=== PATIENT | female | born 1960 | race Caucasian/White ===

== ENCOUNTER → 2016-07-19 | Outpatient (CLI) | payer MEDICAID ==
[~2016-07-19] MED LIST: ALBU8.5H4 IH; ALPR.5T PO; ATN50T PO; CHOL5000 PO; DULO30CA3 PO; ESCI10TA49 PO; EZET10TA5 PO; FEXO180T PO; FLUO40CA12 PO; GEMF600T3 PO; GLYB5TAB6 PO; LORA10TA7 PO; LORA5SOL51 PO; LOVA40TA2 PO; METF850T2 PO; METH-315 PO; MONT10TA21 PO; OLOP2.5D OP; OLOP2.5D OU; ONDA4TAB41 PO; ONDA4TAB8 PO; ONDAN4ODT PO; OXYC-109 PO; OXYC1TAB8 PO; OXYC1TAB87 PO; PROP1DRO OP; RIZA10TA25 PO; TIZA6CAP7 PO; TRM50T PO; VITA-189 PO; [UNRECOGNIZED DRUG - OTHER] PO
--- NOTE | 2016-07-19 10:54 | Diagnostic Imaging Report ---
CLINICAL INDICATION: Patient with congenital cerebral cyst. Patient has history of cyst at third ventricle with headache. EXAM: MRI of the brain performed without and with 15 cc of ProHance IV contrast. Sequences include axial DWI, ADC map, axial proton density coronal gradient echo, axial T2, axial FLAIR, axial T1, axial T1 post IV contrast, and coronal T1 post IV contrast. COMPARISON: MRI of the brain performed without and with IV contrast dated 07/16/2013. FINDINGS: There is no evidence of colloid cyst seen on this exam. There is flow artifact seen within the third ventricle and near the foramen of [place] on the axial FLAIR sequence. There is no evidence of acute cerebral infarct, intracranial hemorrhage, or gross mass effect. Stable few focal areas of high T2 signal white matter both cerebral hemispheres and frontal lobes likely related to chronic small vessel ischemic disease. There is normal hirsch-white matter distinction. The brain parenchymal volume appears appropriate for patient's age. There is no significant midline shift or herniation. The visualized [place] vascular structures have normal flow void appearance. There is no evidence of hydrocephalus. The basal cisterns are unremarkable. The skull, extracranial soft tissue, and orbits are unremarkable. There is mild mucosal thickening involving both maxillary sinuses and ethmoid sinus. There is a small amount of fluid left mastoid air cells. IMPRESSION: 1: There is no evidence of colloid cyst seen on this exam. There is a small amount of flow artifact in the third ventricle. If there is continued concern for colloid cyst, then cut high resolution axial 3-D T2 sequence, with coronal and sagittal reformatted images, through the third ventricle may help better evaluate. 2: Stable mild chronic small vessel ischemic disease. 3: Mild paranasal sinus disease. Dictated by: Dictated on workstation # [id number]
== END ==
LOC: RAD 08:27
PROVIDERS: ATTEND Psychiatry & Neurology Neurology
DX: Q04.6 Congenital cerebral cysts (principal)
CPT/HCPCS: 36415; 70553; 82565; A9579

== ENCOUNTER 2016-08-06 06:59 | Day surgery (SDC) | payer MEDICAID ==
[2016-08-06] VITALS (10 sets, daily range): BP systolic 101–150; BP diastolic 59–88
[~2016-08-06] VITALS: Ht 162.6 cm; Wt 72.0 kg
--- NOTE | 2016-08-06 06:29 | NUR ---
patient called and stated that prep did not work the only results was a little water and some mucus was expelled. pt stated that she did call last night and talked to iphone developer and was told to call this am. Dr. Valdes notified and gave orders to give a tap water enema on arrival. Addendum: 08/06/16 at 0634 by Aisha Beltran RN pt also stated that she is having sharp right side abdominal pains.
[~2016-08-06 06:59] MED LIST changes: +LACTATED RINGERS 1,000 ML IV SCH; +SODIUM CHLORIDE FLUSH 3 ML SYR IV PRN
[2016-08-06] MEDS ORDERED: LOVA40TA2 PO (07:30)
[2016-08-06] MEDS ORDERED: PROPOFOL 20 ML IV ONE (08:32)
[2016-08-06] MEDS ORDERED: MIDAZOLAM 2 MG/2 ML (VERSED) VIAL ONE (08:32)
--- NOTE | 2016-08-07 11:09 | OPERATIVE REPORT ---
DATE OF OPERATION: 08/06/2016 PRE-OPERATIVE DIAGNOSIS: Colon screening with personal history of colon polys. POST-OPERATIVE DIAGNOSIS: Colon polyp. OPERATIVE PROCEDURE: Total colonoscopy and snare polypectomy. SURGEON: Rohan Valdes MD ANESTHESIA: IV conscious sedation, Monitored Anesthesia Services POSITION: Left lateral decubitus ESTIMATED BLOOD LOSS: Minimal FINDINGS: 1. A small sessile polyp at the hepatic flexure. 2. Poor colon prep. 3. The remainder of colon mucosa normal. OPERATIVE NOTE: Following satisfactory induction of analgesia a digital rectal exam was performed. This revealed normal sphincter tone and no rectal mass. The colonoscope was introduced per rectum and advanced under CO2 insufflation and direct vision to the cecum. The cecum was identified by convergence of the teniae, ileocecal valve, and palpation/translumination of the right lower quadrant. The above findings were noted. Hand[employer] photographs were obtained. The polyp was removed with a snare. Upon closing the snare the polyp was transected obviating the need for cautery. Careful inspection for several minutes revealed good hemostasis. The polyp was removed and submitted to pathology. The above areas of the colon were carefully inspected including extensive suction and irrigation to clear pools of liquid stool. This allowed adequate view of the colon mucosa. The colon was carefully inspected as the scope was slowly withdrawn. Retroflexed view of the rectum was normal. The patient tolerated the procedure well and transferred to recovery in stable condition. RECOMMENDATIONS: Recommendations will depend upon findings of pathology report but the patient needs screening again at least in 5 years. I also recommend double bowel prep for future colonoscopy.
== END 2016-08-06 13:24 | disposition home or self-care (01) ==
LOC: ASC 06:59
PROVIDERS: ATTEND Surgery
DX: Z12.11 Encounter for screening for malignant neoplasm of colon (principal); D12.3 Benign neoplasm of transverse colon; Z86.010 Personal history of colon polyps; E11.42 Type 2 diabetes mellitus with diabetic polyneuropathy; F41.9 Anxiety disorder, unspecified; F17.210 Nicotine dependence, cigarettes, uncomplicated; Z79.4 Long term (current) use of insulin; Z79.84 Long term (current) use of oral hypoglycemic drugs
CPT/HCPCS: 45385; J2250; J7120

== ENCOUNTER 2016-08-07 08:15 | Outpatient (RCR) | payer MEDICAID ==
--- NOTE | 2016-07-30 13:01 | PT/OT/ST INITIAL EVALUATION ---
Department of Health and Human Services Form Approved [facility] Care Financing Administration OMB No. [id number] PLAN OF CARE/ASSESSMENT FOR OUTPATIENT REHABILITATION (Complete for Initial Claims Only) 1. PATIENT'S NAME Cari Villanueva 2. ACC # [id number] 3. HICN NA 4. PROVIDER NO. NA 5. TYPE: PT 6. PRIOR HOSPITALIZATION NA 7. PRIMARY DX Sacroiliitis 8. SECONDARY DX NA 9. ONSET DATE 20 to 25 years ago 10. REFERRAL DATE 07/25/2016 11. SOC. DATE 07/30/2016 12. TIME OF EVAL 8:09 to 9:13 a.m. 12. REFERRING PHYSICIAN Dr. Geoffrey Reza 13. CHARGES/UNITS Evaluation 31736 2 units [place] [address]450 14. G CODES NA 15. PRIOR LEVEL OF FUNCTION; PERTINENT HISTORY (Prior therapy results, reason for referral.) S: Prior to therapy the patient consented to today's evaluation and treatment. The patient is a 55-year-old female referred to physical therapy by Dr. Geoffrey Reza to address sacroiliitis. Mechanism of injury: The patient notes she has a 20 to 25 years history of low back pain, however, over the last 6 months she has had progressive pain into the anterior hip region, as well as into the gluteals and lower portion of her legs. The patient has undergone an MRI recently, which was negative for any specific involvement of the disks. The patient notes the referring physician believes her nerve roots are getting compressed as they exit the sacrum. Prior level of function: The patient is no longer working. She ambulates with the use of a cane or a walker on uneven surfaces secondary to bilateral ankle instability, which she wears AFOs for. The patient frequently has loss of balance with quick turns. The patient does have a dog, which she cares for and was ambulating approximately a mile at a time prior to the exacerbation of her pain symptoms. Current level of function: The patient notes decreased ability to tolerate ambulation secondary to her pain. She also has sleep interruptions, not being to sleep without pain medication, as well as limited standing and sitting tolerance. Therapy History: The patient did undergo physical therapy following a neck surgery and shoulder surgery within the last 5 years, but has not had any recent therapy for this specific issue recently. Pain level: Maximum pain level is greater than 4/10. Current pain level 4/10. The pain is described as constant in the bilateral anterior hip region with occasional knee pain and pain into the gluteal region at times. Aggravating factors: The pain is aggravated by lifting, leaning to the side, and flexing her hip, as well as riding on a car. Relieving factors: The pain is relieved by taking pain medication. Past medical history: The patient has a history of L5 disk bulge that is central in nature causing lower extremity neurological symptoms. She has undergone a C4 through C7 laminectomy, C5 through C6 diskectomy. She notes a longstanding history of diminished strength in her lower extremities, as well as diminished sensation in the left lower extremity from mid calf down to her foot secondary to her neck related issues. The patient also reports a history of stable dislocation of C7-T1. 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 Medication allergies: The patient's medicinal allergies includes tetracycline, adhesives and sulfa. She also has sensitivities to Demerol, codeine and Norges[place]. Current medications: The patient is currently taking tramadol, oxycodone, tizanidine, duloxetine, lovastatin, Montelukast, metformin, loratadine, rizatriptan, atenolol, alprazolam, and also utilizes an albuterol inhaler as needed. Activity level: The patient's self-reported activity level is sedentary. Personal health rating: Rated as fair. Patient's Goal: The patient's goal is to have decreased pain, regain mobility and strength. 16. INITIAL ASSESSMENT/SAFETY PRECAUTIONS/MEDICAL COMPLICATIONS (Level of function at start of care. Be specific, use objective measures, list problems.) O: APPEARANCE, OBSERVATION AND GAIT: The patient demonstrates increased time needed to assume full upright sitting from a standing position. She has increased utilization of upper extremities when transitioning from [id number] as well. The patient had decreased lumbar segmentation with forward trunk lean in sitting. Decreased lumbar lordosis and thoracic kyphosis noted. The physical therapist was able to minimally assess the patient's posture in standing secondary to patient's impaired balance. PALPATION: The patient has tenderness to palpation of the bilateral IT bands and greater trochanteric bursa, significant muscle tightness along the lumbar thoracic paraspinals. She also demonstrates hypomobility in the L3 through L5 segments, as well as sacral hypomobility with right rotation noted. SPECIAL TESTS: The patient's right PSIS remains stationary with forward trunk lean and setting. She scores 36 out of 50 on the modified Oswestry, positive straight leg raise test for increased nerve tension in the left lower extremity and back pain, negative straight leg raise test on the left. Positive FADER on the right. For hip pain, negative hip scour bilaterally and negative PETER test bilaterally. The patient does have equal leg length with posture assessed in supine. RANGE OF MOTION/FLEXIBILITY: The patient did not demonstrate any specific range of motion limitations in the lower extremities, however, the patient does take longer to initiate movements in the left lower extremity and the quality of movement is impaired. Lumbar range of motion was not assessed in standing secondary to patient's impaired balance related to altered proprioception from prior neck injury. STRENGTH: Right hip flexion strength 3+/5, left 4/5 with the patient having difficulty maintaining a smooth contraction. Hip abduction on the right 4/5, left 3+/5. Knee flexion on the right 4/5, left 4/5, knee extension on the right 4+/5, left 4/5. Again difficulty on the left sustaining this movement with good quality. Ankle dorsiflexion on the right 4/5, left 3/5. Ankle plantar flexion 3/5 bilaterally when assessed in sitting. TODAY'S TREATMENT: Today's treatment consisted of educating the patient on the findings of the evaluation and recommended treatment plan. The physical therapist initiated gentle lower extremity and lumbar stretching including double knee to chest and crossing knee to chest stretches, initiated hip strengthening with the use of bridges emphasizing proper muscle firing pattern to decrease strain on her neck and low back, as well as bent knee fall out. The patient was provided a written copy of her home exercise program. 17. INITIAL POC: (Specify procedures, modalities, short and skilled nursing goals) A: The patient presents to physical therapy with a longstanding history of low back pain with the most recent exacerbation occurring 6 months ago and the knee pain has progressed since this time period. The patient has extensive lower extremity weakness, impaired mobility through the lumbar spine and sacrum, as well as nerve tension greatest through the left lower extremity. PROGNOSIS: The patient would benefit from physical therapy and does have a fair outcome secondary to her motivation to improve her functional mobility. OUTCOME ASSESSMENT: The patient scores a 36/50 on the Modified Oswestry pain questionnaire. INFORMED CONSENT: The diagnosis, prognosis, treatment plan, risks and expected outcomes were discussed with this patient and she is agreeable to today's established plan of care. CONTRAINDICATIONS, PRECAUTIONS AND OBSTACLES TO DELIVERY OF CARE: The patient does have a longstanding history of cervical spine issues, which have resulted, per her report, in lower extremity altered sensation and other neurological issues. Therefore, avoid strain on this region with any exercises. SHORT TERM GOALS: 1. The patient will report independence and compliance with home exercise program. 2. The patient will be able to complete 5 [id number] transfers without use of her upper extremities to demonstrate improved lower extremity strength with the AFOs on. 3. The patient will report a minimum of a 25% decrease in anterior hip and low back pain frequency and intensity to improve her ability to tolerate ambulation and functional standing. DISTRICT GAUGER GOALS X6 WEEKS: 1. The Patient will improve her modified Oswestry score by a minimum of 10 points and demonstrate improved overall functional mobility due to improvement in low back and anterior hip pain. 2. The patient will improve left ankle plantar flexion, dorsiflexion, hip abduction strength to a minimum of 4/5, as well as right lower extremity strength to a minimum of 4+/5 in order to provide further stability to the low back and decreased pain. 3. The patient will report being able to return to ambulating 1/3 a mile at a time without pain limiting her and utilization of her AFOs. 4. The patient will report a minimum of an overall decrease in pain by 50%. P: Plan to see this patient 3 times a week for 6 weeks in order to address low back pain, impaired lower extremity strength, as well as significant nerve tension and impaired functional mobility related to the back pain and anterior hip pain. Treatment will include modalities including ultrasound, E-stim, and iontophoresis, however, caution should be used secondary to patient's allergies to adhesive. Manual therapy techniques will be utilized including soft tissue and deep tissue mobilization, joint mobilizations to the lumbar spine and sacrum to improve mobility, as well as myofascial release as the patient tolerates. Therapeutic exercise will emphasize improving lower extremity flexibility with progressive strengthening of the trunk and lower extremity musculature. Functional training will be utilized to decreased strain on the patient's low back and sacral region, as well as assisting the patient in proper body mechanics with functional tasks. Neuromuscular reeducation will be utilized as well. The patient was provided a home exercise program and this will be progressed as needed. 18. FREQUENCY 3 times per week 19. DURATION 6 weeks 20. FUNCTIONAL LEVEL (End of claim period) 21. PHYSICIAN SIGNATURE ? ON FILE OR ENTER HERE: 22. DATE: I certify the need for these services furnished under this plan of care and if for partial hospitalization. 23. CERTIFICATION FROM THROUGH FORM FA-700
[~2016-08-07 08:15] MED LIST changes: -LACTATED RINGERS 1,000 ML IV SCH; -SODIUM CHLORIDE FLUSH 3 ML SYR IV PRN
== END 2016-08-12 10:49 | disposition home or self-care (01) ==
LOC: PT 08:15
PROVIDERS: ATTEND Neurological Surgery
DX: M46.1 Sacroiliitis, not elsewhere classified (principal)